=== PATIENT | female | born 1960 | race African-American/Black ===

== ENCOUNTER 2024-12-22 22:26 | Emergency (ER) | payer OTHER ==
[2024-12-22 22:43] VITALS: TEMP 98.7; BMI 32.5
[2024-12-22] MEDS ORDERED: ACETAMINOPHEN INJECTION 100 ML ONE (23:22)
[2024-12-22] MEDS: ACETAMINOPHEN 1000 MG/100 ML BAG IVPB ONE (23:33)
[2024-12-22 23:35] LABS: BASOPHILS # 0.02 x10^3/uL (0.01-0.08); EOSINOPHIL % 7.9 % (0.7-5.8); EOSINOPHILS # 0.39 x10^3/uL (0.04-0.36); HEMATOCRIT 37.9 % (34.1-44.9); HEMOGLOBIN 11.9 g/dL (11.2-15.7); MCHC 31.4 g/dl (32.2-35.5); MEAN CELL VOLUME 85.6 fl (79.4-94.8); MEAN PLT VOLUME 10.1 fl (9.4-12.3); MONOCYTE # 0.55 x10^3/uL (0.24-0.86); MONOCYTE % 11.1 % (4.7-12.5); PLATELET COUNT 215 x10^3/uL (182-369)
[2024-12-22 23:59] LABS: POTASSIUM 4.2 mmol/L (3.5-5.1)
[2024-12-23 00:01] LABS: BLOOD UREA NITROGEN 18.2 mg/dL (7-18); CALCIUM 9.7 mg/dL (8.5-10.1)
[2024-12-23 00:04] LABS: CREATININE 0.9 mg/dL (0.55-1.3)
[2024-12-23 01:24] VITALS: BP 125/79; PULSE 80; RESP 19
== END 2024-12-23 01:40 | disposition home or self-care (01) ==
LOC: JER 22:26
PROC: 3E033NZ Introduction of Analgesics, Hypnotics, Sedatives into Peripheral Vein, Percutaneous Approach (ICD-10-PCS; principal; 2024-12-22)
DX: M54.12 Radiculopathy, cervical region (principal); R11.0 Nausea; R51.9 Headache, unspecified; R42 Dizziness and giddiness; R20.0 Anesthesia of skin
CPT/HCPCS: 36415; 70450-TC; 72125-TC; 80048; 85025; 93970-TC; 99285-25